=== PATIENT | male | born 1980 | race Hispanic/Latino ===

== ENCOUNTER 2017-01-05 09:46 | Emergency (ER) | payer OTHER ==
[~2017-01-05] VITALS: Ht 185.4 cm; Wt 71.8 kg
[2017-01-05 09:54] VITALS: BP 120/82; PULSE 62; RESP 18; O2SAT 100
--- NOTE | 2017-01-05 10:13 | ED.REPORT ---
HPI-General Illness Date of Service Jan 05, 2017 ED Provider: Deonte Duncan MD Patient is a 36 year old male who presents to the ED after being dropped off by [employer] requesting help for his IV methamphetamine use. He denies heroin and cocaine use. He also complains of a productive cough and depression. He denies recent illness, fever, suicidal ideations, diarrhea, vomiting, or any other symptoms. He is currently homeless. Nursing Notes Stated Complaint: LACERATION/SCARS ON BODY Chief Complaint: Psychiatric Complaint Nursing Notes Reviewed: Yes Allergies: Coded Allergies: No Known Allergies (Unverified , 01/05/17) General Time Seen by MD: 10:12 Chief Complaint Other (Substance abuse) Hx Obtained From: Patient Arrived By: Police Sudden in Onset?: No Past Medical History Past Medical History Healthy Past Surgical History Reports: Cholecystectomy Smoking History Current Every Day Smoker Social History Alcohol Use: "Social" Drug Use: IV drugs, Meth Other Social History: Homeless Ambulatory Status Independent Review of Systems +substance abuse Full Review of Systems Constitutional: Denies: Fever Respiratory: Reports: Prod cough, clear GI: Denies: Diarrhea, Vomiting Psychiatric: Reports: Depression, Denies: Suicidal ideation Complete sys rev & neg: except as marked. Physical Exam Vital Signs Vital Signs Date Time Temp Pulse Resp B/P Pulse Ox O2 Delivery O2 Flow Rate FiO2 01/05/17 13:04 36.8 63 18 114/72 96 Room Air 01/05/17 09:54 62 18 120/82 100 Initial VS: Reviewed, Vital signs normal Head / Eyes: Atraumatic, Normocephalic Neck: Full range of motion Respiratory: Breath sounds normal, Clear to auscultation, No respiratory distress Abdomen / GI: Soft, Non-tender, No guarding, No rebound Neurologic: Alert, Oriented, Nonfocal Psychiatric: Mood/affect normal, Behavior normal, Normal thought content General/Constitutional: Awake, Alert Behavior: Positive: Anxious Skin: Color NL, Warm Color / Condition: Positive: Diaphoresis present (Mild) Interpretation & Diagnostics Lab Results Interpretation Test 01/05/17 10:30 Hold Urine Received (Received) Re-Eval/Medical Decision Time of Eval: 11:45 Patient Status: Condition improved Re-Evaluation/Progress Note: Discussed plan for discharge. Patient understands and agrees with plan. All questions addressed at this time. Counseled Regarding: Diagnosis, Lab results, Need for follow-up, When/why to return to ED Discharge & Departure Primary Impression: Methamphetamine abuse Disposition: Home Patient Instructions: Methamphetamine Abuse (ED) Additional Instructions: I am impressed that you have, and asked for help getting off methamphetamines. Please utilize the resources provided by [facility] to contact agencies to assist you. Call [facility] ([phone]) every 12-24 hours to see if a bed opens up. Scribe Attestation Portions of this note were transcribed by Andrés Lin. I, Dr. Duncan personally performed the history, physical exam and medical decision-making; I reviewed and confirmed the accuracy of the information in the transcribed note. Signed by: Andrés Lin 01/05/17, 1152 Deonte Duncan MD Jan 05, 2017 10:13 ANDRÉS LIN Jan 05, 2017 10:19
[2017-01-05 13:04] VITALS: BP 114/72; PULSE 63; RESP 18; O2SAT 96
== END 2017-01-05 13:06 | disposition home or self-care (01) ==
LOC: SED 10:29
DX: F15.10 Other stimulant abuse, uncomplicated (principal); R05 Cough; F17.200 Nicotine dependence, unspecified, uncomplicated; Z59.0 Homelessness